=== PATIENT | female | born 1960 | race Caucasian/White ===

== ENCOUNTER 2016-03-02 09:44 | Emergency (ER) | payer BC ==
[~2016-03-02] VITALS: Ht 157.5 cm; Wt 113.6 kg
[2016-03-02 09:46] VITALS: Ht 157.5 cm; Wt 113.6 kg
[2016-03-02] MEDS ORDERED: ALBUTEROL 0.5% (NEB) 2.5 MG/0.5 ML AMP INH STA (10:12)
[2016-03-02] MEDS ORDERED: METHYLPREDNISOLONE 125 MG INJ IV STA (10:12)
[2016-03-02] MEDS ORDERED: DIPHENHYDRAMINE 50 MG CAP PO STA (10:12)
[2016-03-02] MEDS ORDERED: SOD CHLORIDE 0.9% 2,000 ML IV STA (10:21)
[2016-03-02 10:41] LABS: BASOPHIL # 0.1 10^3/ul (0.0-0.1); BASOPHILS % 0.3 % (0.0-2.0); EOSINOPHILS % 0.3 % (0.0-7.0); HEMATOCRIT 42.3 % (37.0-47.0); HEMOGLOBIN 13.9 g/dl (12.0-16.0); LYMPHOCYTES % 6.4 % (15.0-51.0); MEAN CORPUSCULAR HEMOGLOBIN 28.6 pg (29.0-33.0); MEAN CORPUSCULAR HGB CONC 32.8 g/dl (32.0-37.0); MEAN CORPUSCULAR VOLUME 87.3 fl (82.0-101.0); MEAN PLATELET VOLUME 8.4 fl (7.4-10.4); MONOCYTE # 0.9 10^3/ul (0.3-0.9); MONOCYTES % 5.4 % (0.0-11.0); NEUTROPHIL # 13.9 10^3/ul (1.6-7.5); NEUTROPHILS % 87.6 % (39.0-77.0); PLATELET COUNT 281 10^3/UL (140-440); RED BLOOD COUNT 4.85 10^6/ul (4.20-5.40); RED CELL DISTRIBUTION WIDTH 15.4 % (11.5-14.5); UNCORRECTED WBC 15.9 10^3/ul (4.8-10.8); WHITE BLOOD COUNT 15.9 10^3/ul (4.8-10.8)
[2016-03-02] MEDS ORDERED: LOSA25TA5 PO (10:41)
[2016-03-02] MEDS ORDERED: MTF1000T PO (10:41)
[2016-03-02] MEDS ORDERED: GLIP5TAB13 PO (10:41)
[2016-03-02 10:45] LABS: CONDITION 1; LH ANALYZER COMMENTS 1; SUSPECT 1
[2016-03-02 10:49] LABS: MODE ROOM AIR; MetHgb Venous 0.3 %; Sample Type Blood venous; Venous COHb 0.7 %; Venous Fraction OxyHgb 62.6 %; Venous Total Hemglobin 14.5 g/dl
[2016-03-02 11:24] LABS: POTASSIUM 4.1 mmol/L (3.5-5.1)
[2016-03-02 11:27] LABS: CREATININE 0.98 mg/dl (0.44-1.00)
[2016-03-02] MEDS ORDERED: INSULIN ASPART [NOVOLOG] 3 ML PEN SC ONE ×2 (11:30→14:30)
--- NOTE | 2016-03-02 11:32 | RADRPT ---
PROCEDURE: XR Chest. CLINICAL INDICATION: Dyspnea TECHNIQUE: Single frontal chest x-ray. COMPARISON: None. FINDINGS: No acute infiltrate, pleural effusion or pneumothorax is identified. Cardiomediastinal silhouette i s within normal limits. The osseous structures are unremarkable. IMPRESSION: 1. Unremarkable chest x-ray. RPTAT: PP .Markell Blankenship MD, MD Date Time Electronically viewed and signed by .Markell Blankenship MD, MD on 03/02/2016 11:32 .R/
[2016-03-02 11:36] LABS: CALCIUM 8.4 mg/dl (8.4-10.2); MAGNESIUM 2.4 mg/dl (1.7-2.5); PHOSPHORUS 3.3 mg/dl (2.5-4.9)
[2016-03-02 13:53] LABS: ADD UMIC YES; URINE BILIRUBIN (Dip) NEGATIVE (NEGATIVE); URINE BLOOD (Dip) 3+ (NEGATIVE); URINE COLOR LT. YELLOW (YELLOW); URINE GLUCOSE (Dip) >=1000 % (NEGATIVE); URINE KETONES (Dip) TRACE (NEGATIVE); URINE LEUKOCYTE ESTERASE (Dip) NEGATIVE (NEGATIVE); URINE NITRITE (Dip) NEGATIVE (NEGATIVE); URINE TOTAL PROTEIN (Dip) TRACE (NEGATIVE); URINE UROBILINOGEN (Dip) 0.2 E.U./dL (0.1-1.0)
[2016-03-02 14:09] LABS: BACTERIA,URINE MANY; URINE RBCS >50 /HPF (0)
--- NOTE | 2016-03-02 14:31 | ERD ---
ER Documentation Chief Complaint Date/Time DATE: 03/02/16 TIME: 10:00 Chief Complaint rash for the past few days. dyspnea with activity. not able to walk/ sob HPI 56-year-old female diabetic, hypertensive ambulatory to ED complaining of several day history of generalized, pruritic, red, raised rash. Mild shortness of breath, wheezing and exertional dyspnea but no PND orthopnea. Denies chest pain or palpitations. She took Benadryl with mild relief but the symptoms recurred. Denies new medications or food exposures. Admits to not taking her hypertensive or diabetes medicines for the last 3 days. No abdominal pain, nausea, vomiting, diarrhea or constipation. Denies leg pain or swelling. No headache or neck pain. No URI symptoms or sore throat. Mild dysuria and polyuria but no hematuria or flank pain. No fevers or chills. ROS All systems reviewed and are negative except as per history of present illness. Medications Home Meds Active Scripts Nitrofurantoin Monohyd Macrocr (Macrobid) 100 Mg Capsr, 100 MG PO BID for 7 Days , CAP Prov:RAMESH HUFFMAN MD 03/02/16 Hydroxyzine Hcl* (Atarax*) 50 Mg Tab, 50 MG PO Q6H Y for ITCHING, #20 TAB Prov:RAMESH HUFFMAN MD 03/02/16 Prednisone* (Prednisone*) 20 Mg Tab, 40 MG PO DAILY for 3 Days, TAB Prov:RAMESH HUFFMAN MD 03/02/16 Reported Medications Glipizide* (Glipizide*) 5 Mg Tablet, 5 MG PO BID, TAB 03/02/16 Metformin* (Glucophage*) 1,000 Mg Tablet, 1000 MG PO BID, #60 TAB 03/02/16 Losartan Potassium* (Losartan Potassium*) 25 Mg Tablet, 25 MG PO DAILY, TAB 03/02/16 Allergies Allergies: Coded Allergies: No Known Allergy (Unverified , 03/02/16) PMhx/Soc Reviewed in chart. As per HPI. History of Surgery: No Anesthesia Reaction: No Hx Neurological Disorder: No Hx Respiratory Disorders: No Hx Cardiac Disorders: Yes Hx Psychiatric Problems: No Hx Miscellaneous Medical Probl: Yes (Hypertension dyslipidemia) Hx Alcohol Use: No Hx Substance Use: No Hx Tobacco Use: No Smoking Status: Never smoker FmHx No cancer or stroke. Physical Exam Vitals Vital Signs Date Time Temp Pulse Resp B/P Pulse Ox O2 Delivery O2 Flow Rate FiO2 03/02/16 11:31 112 24 92 21 03/02/16 09:46 98.8 112 24 135/68 92 Physical Exam Const: Alert, anxious but in no acute distress Head: Atraumatic Eyes: Normal Conjunctiva ENT: Normal External Ears, Nose and Mouth. Neck: Full range of motion. Nontender. No JVD Resp: Breath sounds are equal bilaterally with mild expiratory wheezing Cardio: Regular rate and rhythm, no murmurs Abd: Soft, non tender, non distended. Normal bowel sounds. Obese. No CVA tenderness. Skin: Diffuse urticarial rash. No intraoral lesions. Palms and soles are spared. 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 Blood Gas Specimen Source Blood venous Blood Gas Temperature 37.0C Carboxyhemoglobin 0.7% FiO2 21.0% Venous Blood Base Excess 1.2mmol/L Venous Blood HCO3 27.3mmol/L Venous Blood Methemoglobin 0.3% Venous Blood Oxygen Saturation 63.2mmHG Venous Blood Oxyhemoglobin 62.6% Venous Blood Total Hemoglobin 14.5g/dl Venous Blood pCO2 (Temp Corrected) 49.0mmHG Venous Blood pH 7.364 Venous Blood pO2 (Temp Corrected) 32.6mmHG Anion Gap 15 Basophils # 0.110^3/ul Basophils % 0.3% Blood Morphology Comment Blood Urea Nitrogen 19mg/dl Calcium Level 8.4mg/dl Carbon Dioxide Level 28mmol/L Chloride Level 91mmol/L Creatinine 0.98mg/dl Eosinophils # 0.010^3/ul Eosinophils % 0.3% Glucose Level 587mg/dl Hematocrit 42.3% Hemoglobin 13.9g/dl Hemoglobin A1c % Lymphocytes # 1.010^3/ul Lymphocytes % 6.4% Magnesium Level 2.4mg/dl Mean Corpuscular Hemoglobin 28.6pg Mean Corpuscular Hemoglobin Concent 32.8g/dl Mean Corpuscular Volume 87.3fl Mean Platelet Volume 8.4fl Monocytes # 0.910^3/ul Monocytes % 5.4% Neutrophils # 13.910^3/ul Neutrophils % 87.6% Nucleated Red Blood Cells # 0.010^3/ul Nucleated Red Blood Cells % 0.0/100WBC Phosphorus Level 3.3mg/dl Platelet Count 05311^3/UL Potassium Level 4.1mmol/L Red Blood Count 4.8510^6/ul Red Cell Distribution Width 15.4% Sodium Level 130mmol/L White Blood Count 15.910^3/ul Test 03/02/16 13:29 03/02/16 13:40 Bedside Glucose 385mg/dL Urine Bacteria MANY Urine Bilirubin NEGATIVE Urine Clarity CLEAR Urine Color LT. YELLOW Urine Epithelial Cells FEW Urine Glucose >=1000% Urine Hemoglobin 3+ Urine Ketones TRACE Urine Leukocyte Esterase NEGATIVE Urine Microscopic RBC >50/HPF Urine Microscopic WBC 10-25/HPF Urine Nitrite NEGATIVE Urine Specific [place] <=1.005 Urine Total Protein TRACE Urine Urobilinogen 0.2 E.U./dL Urine pH 5.5 Current Medications Medications (Trade) Dose Ordered Sig/Jaja Route PRN Reason Start Time Stop Time Status Last Admin Dose Admin Diphenhydramine HCl (Benadryl) 50 mg ONCE STAT PO 03/02/16 10:12 03/02/16 10:16 DC 03/02/16 10:50 Methylprednisolone Sodium Succinate (Solu-Medrol) 125 mg ONCE STAT IV 03/02/16 10:12 03/02/16 10:16 DC 03/02/16 10:51 Albuterol 10 mg 10 mg ONCE STAT INH 03/02/16 10:12 03/02/16 10:16 DC 03/02/16 11:30 Sodium Chloride (NS) 2,000 ml @ 1,000 mls/hr Q2H STAT IV 03/02/16 10:21 03/02/16 12:20 DC 03/02/16 10:51 Insulin Aspart (Novolog Insulin Pen) 10 unit ONCE ONCE SC 03/02/16 11:30 03/02/16 11:31 DC 03/02/16 12:26 Insulin Aspart (Novolog Insulin Pen) 10 unit ONCE ONCE SC 03/02/16 14:30 03/02/16 14:31 DC PROCEDURE: XR Chest. CLINICAL INDICATION: Dyspnea TECHNIQUE: Single frontal chest x-ray. COMPARISON: None. FINDINGS: No acute infiltrate, pleural effusion or pneumothorax is identified. Cardiomediastinal silhouette is within normal limits. The osseous structures are unremarkable. IMPRESSION: 1. Unremarkable chest x-ray. 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 Mild shortness of breath, wheezing and exertional dyspnea but no PND orthopnea. Rash completely resolved with Benadryl and Solu-Medrol. Mild bronchospasm and wheezing completely resolved with nebulized albuterol. Significant hyperglycemia without DKA likely due to dietary indiscretion and noncompliance with medication resolved with intravenous hydration and subcutaneous insulin. Patient observed in the ED for over 4 hours during which time multiple reexaminations were performed. Rash completely resolved. Lungs are clear without wheezing. Blood sugar controlled. Patient is stable for discharge with precautionary instructions, antihistamines, short course of steroids and close outpatient follow-up. Patient and daughter counseled regarding the need for strict adherence to diet and medications that she is at risk for hyperglycemia and now especially due to corticosteroids. The etiology of her allergic reaction is not established. Mild UTI without pyelonephritis will be started on oral antibiotics pending cultures. Stable for discharge with precautionary instructions and close outpatient follow-up as counseled. Counseled patient and family regarding diagnostic workup, diagnosis and need for followup. Understands to return to ED if symptoms recur, worsen or any other concerns. Observation Note: Time: For hours Family Hx: No stroke or cancer Evaluation: Multiple exams showed improving symptoms. Wheezing any urticaria resolved. No recurrence of allergic reaction. Hyperglycemia improved. 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
[2016-03-02] MEDS ORDERED: ATA50 PO (15:00)
[2016-03-02] MEDS ORDERED: PRED20TA PO (15:00)
[2016-03-02] MEDS ORDERED: NITR-58 PO (15:00)
[2016-03-02 15:33] VITALS: BP 130/70; PULSE 70; RESP 24; TEMP 98.4
== END 2016-03-02 15:34 | disposition home or self-care (01) ==
LOC: E/R 09:44
DX: L50.9 Urticaria, unspecified (principal); E11.65 Type 2 diabetes mellitus with hyperglycemia; I10 Essential (primary) hypertension; R06.02 Shortness of breath; Z91.19 Patient's noncompliance with other medical treatment and regimen; Z79.84 Long term (current) use of oral hypoglycemic drugs
CPT/HCPCS: 36415; 71010; 80048; 81001; 82803; 82962; 83036; 83735; 84100; 85025; 87086; 94644; 96372; 96374; J1815; J2930; J7030; Z7502; Z7610; 81003

== ENCOUNTER 2016-03-04 16:13 | Emergency (ER) | payer BC ==
[~2016-03-04] VITALS: Wt 115.0 kg
[~2016-03-04 16:13] MED LIST: ATA50 PO; GLIP5TAB13 PO; LOSA25TA5 PO; MTF1000T PO; NITR-58 PO; PRED20TA PO
[2016-03-04] MEDS ORDERED: LACTATED RINGER'S 1,000 ML IV STA (16:55)
[2016-03-04] MEDS ORDERED: SOD CHLORIDE 0.9% 2,000 ML IV STA (16:55)
[2016-03-04 17:16] LABS: HEMATOCRIT 40.4 % (37.0-47.0); HEMOGLOBIN 13.1 g/dl (12.0-16.0); MEAN CORPUSCULAR HEMOGLOBIN 28.2 pg (29.0-33.0); MEAN CORPUSCULAR HGB CONC 32.4 g/dl (32.0-37.0); MEAN CORPUSCULAR VOLUME 87.1 fl (82.0-101.0); MEAN PLATELET VOLUME 7.9 fl (7.4-10.4); PLATELET COUNT 356 10^3/UL (140-440); RED BLOOD COUNT 4.64 10^6/ul (4.20-5.40); RED CELL DISTRIBUTION WIDTH 15.5 % (11.5-14.5); UNCORRECTED WBC 17.6 10^3/ul (4.8-10.8); WHITE BLOOD COUNT 17.6 10^3/ul (4.8-10.8)
[2016-03-04 17:19] LABS: CONDITION 1; LH ANALYZER COMMENTS 1; SUSPECT 1
[2016-03-04 17:27] LABS: POTASSIUM 4.5 mmol/L (3.5-5.1)
[2016-03-04 17:30] LABS: CREATININE 0.91 mg/dl (0.44-1.00)
[2016-03-04 17:31] LABS: CALCIUM 8.4 mg/dl (8.4-10.2)
[2016-03-04] MEDS ORDERED: INSULIN LISPRO 100 UNIT/ML VIAL SC STA (17:39)
[2016-03-04 18:22] LABS: ADD UMIC YES; URINE BILIRUBIN (Dip) NEGATIVE (NEGATIVE); URINE BLOOD (Dip) 3+ (NEGATIVE); URINE COLOR LT. YELLOW (YELLOW); URINE GLUCOSE (Dip) >=1000 % (NEGATIVE); URINE KETONES (Dip) NEGATIVE (NEGATIVE); URINE LEUKOCYTE ESTERASE (Dip) TRACE (NEGATIVE); URINE NITRITE (Dip) NEGATIVE (NEGATIVE); URINE TOTAL PROTEIN (Dip) NEGATIVE (NEGATIVE); URINE UROBILINOGEN (Dip) 0.2 E.U./dL (0.1-1.0)
[2016-03-04 18:33] LABS: ANISOCYTOSIS 1+; PLATELET ESTIMATE PLT APPEAR ADEQUATE
[2016-03-04 18:39] LABS: BACTERIA,URINE RARE; SQUAMOUS EPITHELIAL CELL,UR FEW
--- NOTE | 2016-03-04 20:26 | ERD ---
ER Documentation Chief Complaint Date/Time DATE: 03/04/16 TIME: 20:25 Chief Complaint DIZZINESS AND HIGH BLOOD SUGAR ABOUT 20 MN AGO.NO VOMITING HPI Patient is a 56-year-old female with diabetes and hypertension who presents with dizziness. She went to her primary doctor today and her sugar was over 600 so she was sent to the ER for evaluation. She had a rash 2 days ago and was given Atarax and prednisone which is likely made her sugar go even higher. Her rash is gone now and I told the family to stop the prednisone. Upon review of old medical records the patient one previous visit on March 02. Her primary doctor is Dr. Johnna Alvarez. ROS All systems reviewed and are negative except as per history of present illness. Medications Home Meds Active Scripts Nitrofurantoin Monohyd Macrocr (Macrobid) 100 Mg Capsr, 100 MG PO BID for 7 Days , CAP Prov:RAMESH HUFFMAN MD 03/02/16 Hydroxyzine Hcl* (Atarax*) 50 Mg Tab, 50 MG PO Q6H Y for ITCHING, #20 TAB Prov:RAMESH HUFFMAN MD 03/02/16 Prednisone* (Prednisone*) 20 Mg Tab, 40 MG PO DAILY for 3 Days, TAB Prov:RAMESH HUFFMAN MD 03/02/16 Reported Medications Glipizide* (Glipizide*) 5 Mg Tablet, 5 MG PO BID, TAB 03/02/16 Metformin* (Glucophage*) 1,000 Mg Tablet, 1000 MG PO BID, #60 TAB 03/02/16 Losartan Potassium* (Losartan Potassium*) 25 Mg Tablet, 25 MG PO DAILY, TAB 03/02/16 Allergies Allergies: Coded Allergies: No Known Allergy (Unverified , 03/04/16) PMhx/Soc History of Surgery: No Anesthesia Reaction: No Hx Neurological Disorder: No Hx Respiratory Disorders: No Hx Cardiac Disorders: Yes (HTN, HYPERTLIPIDS) Hx Psychiatric Problems: No Hx Miscellaneous Medical Probl: Yes (DM) Hx Alcohol Use: No Hx Substance Use: No Hx Tobacco Use: No Smoking Status: Never smoker FmHx Family History: diabetes Physical Exam Vitals Vital Signs Date Time Temp Pulse Resp B/P Pulse Ox O2 Delivery O2 Flow Rate FiO2 03/04/16 16:24 98.8 92 22 167/89 98 Physical Exam Const: No acute distress Head: Atraumatic Eyes: Normal Conjunctiva ENT: Normal External Ears, Nose and Mouth. Neck: Full range of motion..~ No meningismus. Resp: Clear to auscultation bilaterally Cardio: Regular rate and rhythm, no murmurs Abd: Soft, non tender, non distended. Normal bowel sounds Skin: No petechiae or rashes Back: No midline or flank tenderness Ext: No cyanosis, or edema Neur: Awake and alert Psych: Normal Mood and Affect Result Diagram: 03/04/16 1700 03/04/16 1700 Results 24 hrs Laboratory Tests Test 03/04/16 17:00 03/04/16 17:47 03/04/16 18:45 Anion Gap 15 Anisocytosis 1+ Band Neutrophils % 3.0% Blood Morphology Comment Blood Urea Nitrogen 28mg/dl Calcium Level 8.4mg/dl Carbon Dioxide Level 27mmol/L Chloride Level 96mmol/L Creatinine 0.91mg/dl Glucose Level 608mg/dl Hematocrit 40.4% Hemoglobin 13.1g/dl Lactic Acid Level 1.7mmol/L Lymphocytes # 6.010^3/ul Lymphocytes % 6.0% Mean Corpuscular Hemoglobin 28.2pg Mean Corpuscular Hemoglobin Concent 32.4g/dl Mean Corpuscular Volume 87.1fl Mean Platelet Volume 7.9fl Metamyelocytes % 1.0% Monocytes # 1.010^3/ul Monocytes % 1.0% Neutrophils # 89.010^3/ul Neutrophils % 89.0% Platelet Count 70721^3/UL Platelet Estimate PLT APPEAR ADEQUATE Potassium Level 4.5mmol/L Red Blood Count 4.6410^6/ul Red Cell Distribution Width 15.5% Sodium Level 133mmol/L White Blood Count 17.610^3/ul Urine Bacteria RARE Urine Bilirubin NEGATIVE Urine Clarity CLEAR Urine Color LT. YELLOW Urine Glucose >=1000% Urine Hemoglobin 3+ Urine Ketones NEGATIVE Urine Leukocyte Esterase TRACE Urine Microscopic RBC 2-5/HPF Urine Microscopic WBC 5-10/HPF Urine Nitrite NEGATIVE Urine Specific [place] <=1.005 Urine Squamous Epithelial Cells FEW Urine Total Protein NEGATIVE Urine Urobilinogen 0.2 E.U./dL Urine pH 5.0 Bedside Glucose 482mg/dL Current Medications Medications (Trade) Dose Ordered Sig/Jaja Route PRN Reason Start Time Stop Time Status Last Admin Dose Admin Sodium Chloride 2,000 ml @ 1,000 mls/hr Q2H STAT IV 03/04/16 16:55 03/04/16 18:54 DC 03/04/16 17:12 Lactated Ringer's (Lr) 1,000 ml @ 1,000 mls/hr Q1H STAT IV 03/04/16 16:55 03/04/16 17:54 DC 03/04/16 17:11 Insulin Human Lispro (Humalog) 20 unit ONCE STAT SC 03/04/16 17:39 03/04/16 17:41 DC 03/04/16 17:46 Procedures/MDM Patient is a 56-year-old female presents with hyperglycemia. She has no rash at this time and I told her to stop the prednisone as this was likely making her sugar go higher. There is no sign of diabetic ketoacidosis. She was given fluid resuscitation and was given subcutaneous Humalog. Her sugar has improved. I believe outpatient management is appropriate. She should continue to take her diabetic medications but she may need to be changed over to insulin by her doctor. She can return for any worsening symptoms. At this point I believe outpatient management is appropriate. Departure Diagnosis: Primary Impression: Leukocytosis Leukocytosis type: unspecified Qualified Code: D72.829 - Leukocytosis, unspecified type Additional Impression: Hyperglycemia Condition: Fair Patient Instructions: Hyperglycemia (High Blood Sugar) Additional Instructions: Llame al doctor MAANA y jesús edy ZAIDA PARA DENTRO DE 1-2 LOREDO.Dgale a la secretaria que nosotros le instruimos hacer esta zaida.Avise o llame si ang[place] condicin se empeora antes de la zaida. Regresa aqui si peor o no mejor. YESSI MENDEZ MD Mar 04, 2016 20:26
== END 2016-03-04 18:40 | disposition home or self-care (01) ==
LOC: E/R 16:13
DX: D72.829 Elevated white blood cell count, unspecified (principal); E11.65 Type 2 diabetes mellitus with hyperglycemia; I10 Essential (primary) hypertension; Z79.84 Long term (current) use of oral hypoglycemic drugs
CPT/HCPCS: 36415; 80048; 81001; 82962; 83605; 85025; 96372; J1815; J7030; J7120; Z7502; 81003